=== PATIENT | male | born 1975 | race Two or more races ===

== ENCOUNTER 2023-02-06 19:24 | Inpatient (IN) | payer OTHER ==
[2023-02-06 20:59] VITALS: BMI 22.7
[2023-02-07] MEDS ORDERED: IBUPROFEN 600 MG TABLET (FP) PO PRN (02:35)
[2023-02-07] MEDS ORDERED: BENZONATATE 200 MG CAPSULE PO PRN (02:35)
[2023-02-07] MEDS ORDERED: NICOTINE 10 MG CARTRIDGE (INHALER) IH PRN (02:35)
[2023-02-07] MEDS ORDERED: ACETAMINOPHEN 325 MG TABLET (FP) PO PRN (02:35)
[2023-02-07] MEDS ORDERED: methaDONE HCL 10 MG TABLET (FOR DETOX USE ONLY) PO ONE (02:35)
[2023-02-07] MEDS ORDERED: BENZOCAINE/MENTHOL (CHLORASEPTIC ) LOZENGE MM PRN (02:35)
[2023-02-07] MEDS ORDERED: LOPERAMIDE HCL 2 MG CAPSULE PO PRN (02:35)
[2023-02-07] MEDS ORDERED: METHOCARBAMOL 500 MG TABLET PO PRN (02:35)
[2023-02-07] MEDS ORDERED: BISMUTH SUBSALICYLATE 524 MG/30 ML PO PRN (02:35)
[2023-02-07] MEDS ORDERED: NALOXONE HCL (KLOXXADO) 8 MG SPRAY NS PRN (02:35)
[2023-02-07] MEDS ORDERED: ONDANSETRON *ODT* 4 MG TABLET SL PRN (02:35)
[2023-02-07] MEDS ORDERED: MAG HYDROX/AL HYDROX/SIMETH 30 ML UNIT-DOSE CUP PO PRN (02:35)
[2023-02-07] MEDS ORDERED: POLYETHYLENE GLYCOL (HEALTHYLAX) 3350 17 GM PACKET PO PRN (02:35)
[2023-02-07] MEDS ORDERED: cloNIDine HCL 0.1 MG TABLET PO PRN (02:35)
[2023-02-07] MEDS ORDERED: NALOXONE HCL 0.4 MG/ML VIAL IM PRN (02:35)
[2023-02-07] MEDS ORDERED: IBUPROFEN 400 MG TABLET (FP) PO PRN (02:35)
[2023-02-07] MEDS ORDERED: DICYCLOMINE HCL 10 MG CAPSULE PO PRN (02:35)
[2023-02-07] MEDS ORDERED: guaiFENesin 600 MG TABLET.ER (FP) PO PRN (02:35)
[2023-02-07] MEDS ORDERED: MAGNESIUM HYDROX 2400MG/30ML ORAL SUSPENSION 30 ML CUP PO PRN (02:35)
[2023-02-07] MEDS: chlordiazePOXIDE HCL 25 MG CAPSULE PO PRN (03:20)
[2023-02-07] MEDS: chlordiazePOXIDE HCL 25 MG CAPSULE PO SCH ×4 (05:48→22:15)
[2023-02-07] MEDS: NICOTINE 21 MG/24 HOURS TOPICAL PATCH TD SCH (10:13)
[2023-02-07] MEDS: PRENATAL VITAMINS W/ FOLIC ACID TABLET (FP) PO SCH (10:13)
[2023-02-07] MEDS: LISINOPRIL 20 MG TABLET PO SCH (10:14)
[2023-02-07] MEDS ORDERED: PNEUMOC 20-VAL CONJ-DIP CRM/PF 0.5 ML SYRINGE IM ONE (12:00)
[2023-02-07] MEDS ORDERED: ALBUTEROL SO4 HFA INHALER IH PRN (14:23)
[2023-02-07] MEDS: ATENOLOL 25 MG TABLET (FP) PO SCH (15:54)
[2023-02-07] MEDS: ALBUTEROL SO4 HFA INHALER IH PRN ×2 (15:58→22:15)
[2023-02-07] MEDS: THIAMINE HCL 100 MG TABLET (FP) PO SCH (22:15)
[2023-02-07] MEDS: MELATONIN 5 MG TABLETS PO SCH (22:15)
[2023-02-08] MEDS: chlordiazePOXIDE HCL 25 MG CAPSULE PO SCH ×4 (05:25→22:17)
[2023-02-08] MEDS: ATENOLOL 25 MG TABLET (FP) PO SCH (10:32)
[2023-02-08] MEDS: LISINOPRIL 20 MG TABLET PO SCH (10:32)
[2023-02-08] MEDS: NICOTINE 21 MG/24 HOURS TOPICAL PATCH TD SCH (10:32)
[2023-02-08] MEDS: PANTOPRAZOLE 40 MG TABLET PO SCH (10:32)
[2023-02-08] MEDS: PRENATAL VITAMINS W/ FOLIC ACID TABLET (FP) PO SCH (10:32)
[2023-02-08] MEDS: ALBUTEROL SO4 HFA INHALER IH PRN ×2 (10:36→17:30)
[2023-02-08 10:48] LABS: POTASSIUM 3.9 mmol/L (3.5-5.1)
[2023-02-08 10:56] LABS: ALBUMIN 3.3 g/dl (3.4-5.0); BLOOD UREA NITROGEN 6.1 mg/dL (7-18); CALCIUM 9.1 mg/dL (8.5-10.1)
[2023-02-08 10:59] LABS: CREATININE 0.7 mg/dL (0.55-1.3)
[2023-02-08 11:00] LABS: HEMATOCRIT 40.6 % (35.4-49); HEMOGLOBIN 12.9 GM/dL (11.7-16.9); MCH 30.2 pg (25.7-33.7); MCHC 31.9 g/dl (32.0-35.9); MEAN CELL VOLUME 94.7 fl (80-96); MEAN PLT VOLUME 9.7 fl (7.5-11.1); PLATELET COUNT 152 10^3/uL (134-434); RBC 4.29 M/mm3 (4.00-5.60); RDW 14.9 % (11.9-15.9); WHITE BLOOD COUNT 7.2 K/mm3 (4.0-10.0)
[2023-02-08 11:01] LABS: TOT PROT 5.8 g/dl (6.4-8.2)
[2023-02-08] MEDS: chlordiazePOXIDE HCL 25 MG CAPSULE PO PRN (17:26)
[2023-02-08] MEDS: MELATONIN 5 MG TABLETS PO SCH (22:16)
[2023-02-08] MEDS: THIAMINE HCL 100 MG TABLET (FP) PO SCH (22:16)
[2023-02-09] MEDS ORDERED: chlordiazePOXIDE HCL 10 MG CAPSULE PO PRN
[2023-02-09] MEDS: chlordiazePOXIDE HCL 10 MG CAPSULE PO SCH ×2 (05:28→10:15)
[2023-02-09 06:04] VITALS: RESP 18
[2023-02-09 09:12] VITALS: BP 137/93; PULSE 80; TEMP 97.3
[2023-02-09] MEDS ORDERED: methaDONE HCL 10 MG TABLET (FOR DETOX USE ONLY) PO ONE (10:00)
[2023-02-09] MEDS: PRENATAL VITAMINS W/ FOLIC ACID TABLET (FP) PO SCH (10:13)
[2023-02-09] MEDS: ALBUTEROL SO4 HFA INHALER IH PRN (10:13)
[2023-02-09] MEDS: LISINOPRIL 20 MG TABLET PO SCH (10:14)
[2023-02-09] MEDS: PANTOPRAZOLE 40 MG TABLET PO SCH (10:14)
[2023-02-09] MEDS: NICOTINE 21 MG/24 HOURS TOPICAL PATCH TD SCH (10:14)
[2023-02-09] MEDS: ATENOLOL 25 MG TABLET (FP) PO SCH (10:14)
[2023-02-09] MEDS ORDERED: HYDROCORTISONE 0.5% TOPICAL CREAM 30 GM TUBE TP PRN (11:44)
[2023-02-10] MEDS ORDERED: chlordiazePOXIDE HCL 10 MG CAPSULE PO SCH (05:00)
[2023-02-11] MEDS ORDERED: chlordiazePOXIDE HCL 10 MG CAPSULE PO ONE (05:00)
[2023-02-11] MEDS ORDERED: methaDONE HCL 10 MG TABLET (FOR DETOX USE ONLY) PO ONE (10:00)
== END 2023-02-09 12:26 | disposition left against medical advice (07) | DRG 770 ==
LOC: YASAS 19:24 → Y3N 02-07 02:50
PROVIDERS: ADMIT Allergy & Immunology; ATTEND Surgery
PROC: HZ2ZZZZ Detoxification Services for Substance Abuse Treatment (ICD-10-PCS; principal; 2023-02-07)
DX: F10.230 Alcohol dependence with withdrawal, uncomplicated (principal); F17.210 Nicotine dependence, cigarettes, uncomplicated; F19.24 Other psychoactive substance dependence with psychoactive substance-induced mood disorder; E78.5 Hyperlipidemia, unspecified; I10 Essential (primary) hypertension; J45.909 Unspecified asthma, uncomplicated; K21.9 Gastro-esophageal reflux disease without esophagitis; M54.50 Low back pain, unspecified; G89.29 Other chronic pain; R21 Rash and other nonspecific skin eruption
CPT/HCPCS: 26055; 36415; 80053; 85027; 86780; 87635; 90677; 93005; 93010